=== PATIENT | female | born 1945 | race Caucasian/White ===

== ENCOUNTER 2020-04-19 20:58 | Emergency (ER) | payer OTHER ==
[~2020-04-19] VITALS: Ht 154.9 cm; Wt 54.4 kg
[~2020-04-19 20:58] MED LIST: ASPI81CH PO; CLOP75 PO; LISI5 PO; METO50 PO; SIMV40 PO
[2020-04-19] MEDS ORDERED: Norco 5-325 Ta1 EACH PO (21:47)
== END 2020-04-19 22:25 | disposition home or self-care (01) ==
LOC: ER 20:58
DX: S42.202A Unspecified fracture of upper end of left humerus, initial encounter for closed fracture (principal); Z79.82 Long term (current) use of aspirin; Z79.02 Long term (current) use of antithrombotics/antiplatelets; Z79.899 Other long term (current) drug therapy; F17.210 Nicotine dependence, cigarettes, uncomplicated; W01.0XXA Fall on same level from slipping, tripping and stumbling without subsequent striking against object, initial encounter; Y93.K1 Activity, walking an animal
CPT/HCPCS: 73030; 99283-25; A9270

== ENCOUNTER 2022-02-21 20:15 | Emergency (ER) | payer OTHER ==
[~2022-02-21] VITALS: Ht 152.4 cm; Wt 65.2 kg
[~2022-02-21 20:15] MED LIST changes: +Norco 5-325 Ta1 EACH PO
[2022-02-21 21:35] LABS: BASOPHILS ABSOLUTE AUTO 0.08 K/mm3 (0.00-0.23); BASOPHILS PERCENT AUTO 1 % (0-2); EOSINOPHILS ABSOLUTE AUTO 0.13 K/mm3 (0.00-0.68); EOSINOPHILS PERCENT AUTO 1 % (0-6); Hematocrit 39.6 % (33.0-51.0); IMMATURE GRAN ABSOLUTE AUTO 0.03 K/mm3 (0.00-0.10); IMMATURE GRAN PERCENT AUTO 0 % (0-1); LYMPHOCYTES ABSOLUTE AUTO 1.82 K/mm3 (0.84-5.20); LYMPHOCYTES PERCENT AUTO 17 % (21-46); MONOCYTES PERCENT AUTO 9 % (4-13); Mean Corpuscular HGB 29.1 pg (26.0-34.0); Mean Corpuscular HGB Conc 32.8 g/dL (31.5-36.5); Mean Corpuscular Volume 89 fL (80-100); Mean Platelet Volume 11.5 fL (9.1-12.4); NEUTROPHILS ABSOLUTE AUTO 7.68 K/mm3 (1.96-9.15); NEUTROPHILS PERCENT AUTO 72 % (41-73); Platelet Count 286 K/mm3 (150-400); RDW Coefficient Variation 13.2 % (11.7-14.2); RDW Standard Deviation 43.1 fL (35.1-46.3); Red Blood Cell Count 4.46 M/mm3 (3.80-5.20); White Blood Cell Count 10.74 K/mm3 (4.00-11.30)
[2022-02-21 21:49] LABS: Albumin, Blood 3.6 g/dL (3.4-5.0); Albumin/Globulin Ratio 0.9 (0.8-1.8); Bilirubin, Total 0.4 mg/dL (0.1-1.0); Bun/Creatinine Ratio 15.7 (12.0-20.0); Calcium, Blood 9.2 mg/dL (8.5-10.1); Creatinine, Blood 0.89 mg/dL (0.40-1.00); Globulin, Blood 3.8 g/dL (2.2-4.0); Potassium, Blood 4.3 mmol/L (3.5-5.5); Total Protein, Blood 7.4 g/dL (6.4-8.2)
== END 2022-02-22 00:30 | disposition home or self-care (01) ==
LOC: ER 20:15
PROVIDERS: Student in an Organized Health Care Education/Training Program
DX: R07.9 Chest pain, unspecified (principal); I10 Essential (primary) hypertension; E11.9 Type 2 diabetes mellitus without complications; E78.5 Hyperlipidemia, unspecified; I25.10 Atherosclerotic heart disease of native coronary artery without angina pectoris; Z79.82 Long term (current) use of aspirin; Z79.899 Other long term (current) drug therapy
CPT/HCPCS: 36415; 71046; 80053; 84484; 85025; 93005; 93010; 99285-25

== ENCOUNTER 2023-02-19 08:03 | Day surgery (SDC) | payer OTHER ==
[~2023-02-19] VITALS: Ht 154.9 cm; Wt 62.4 kg
[2023-02-19] MEDS ORDERED: XARELTO20 MG PO (09:00)
[2023-02-19] MEDS ORDERED: ATEN50 PO (09:01)
[2023-02-19 09:19] VITALS: BP 158/74
[2023-02-19] MEDS ORDERED: Prinivil10 MG PO ×2 (10:05→11:17)
[2023-02-19] MEDS ORDERED: ASPI81CH PO (10:05)
[2023-02-19 10:16] VITALS: BP 214/59
--- NOTE | 2023-02-19 10:21 | NUR ---
PROCEDURE CANCELLED DURING ADMISSION THE PT ADMITS TO NOT TAKING HER LISINOPRIL SINCE EARLY JANUARY. PT'S BP ON ADMISSION IS 214/59. DR. GONZÁLES NOTIFIED AND PROCEDURE IS CANCELED. DR. GONZÁLES OKAY W PT BEING DC'D HOME SHE IS ASYMPTOMATIC. THIS RN EDUCATING THE PT ON THE DANGERS OF UNCONTROLLED HTN AND THAT SHE CAN GO TO THE EMERGENCY RM TO BE EVALUATED FOR HER HTN. PT AGREES TO FOLLOW UP W HER PCP.
== END 2023-02-19 22:41 | disposition home or self-care (01) ==
LOC: ORSCMMR 08:03 → ORD 09:30 → ORSCMMR 22:41
DX: Z12.11 Encounter for screening for malignant neoplasm of colon (principal); I10 Essential (primary) hypertension; Z53.9 Procedure and treatment not carried out, unspecified reason; I25.2 Old myocardial infarction; Z79.899 Other long term (current) drug therapy; Z87.891 Personal history of nicotine dependence
CPT/HCPCS: J7120

== ENCOUNTER 2023-02-19 11:05 | Emergency (ER) | payer OTHER ==
[~2023-02-19] VITALS: Ht 157.5 cm; Wt 62.6 kg
[~2023-02-19 11:05] MED LIST changes: +ATEN50 PO; +Prinivil10 MG PO; +XARELTO20 MG PO
[2023-02-19 11:14] VITALS: BP 201/64
[2023-02-19] MEDS ORDERED: Prinivil10 MG PO (11:17)
== END 2023-02-19 13:42 | disposition home or self-care (01) ==
LOC: ER 11:05
DX: I10 Essential (primary) hypertension (principal); E11.9 Type 2 diabetes mellitus without complications; E78.5 Hyperlipidemia, unspecified; M10.9 Gout, unspecified; Z79.899 Other long term (current) drug therapy
CPT/HCPCS: 93005; 93010; 99283-25

== ENCOUNTER 2024-04-07 10:58 | Day surgery (SDC) | payer MEDICARE ==
[~2024-04-07] VITALS: Ht 154.9 cm; Wt 58.2 kg
[~2024-04-07 10:58] MED LIST changes: +Povidone-Iodine 450 DROP/30 ML Solution ONE; +Tetracaine HCl/Pf 0.5% Opth Soln 4 ml ONE
[2024-04-07] MEDS ORDERED: Aspir 8181 MG PO (11:46)
[2024-04-07] MEDS ORDERED: Midazolam HCl 1MG / ML 2ML Vial ONE (12:06)
[2024-04-07] MEDS ORDERED: FentaNYL Citrate 50 MCG/ML 2 ML Injection ONE (12:06)
[2024-04-07] MEDS ORDERED: Balanced Salt Epinephrine Irrigation Solution 500 mL IR ONE (12:21)
[2024-04-07] MEDS ORDERED: Lidocaine HCl/Pf 1% 5 ML VIAL XX ONE (12:21)
[2024-04-07] MEDS ORDERED: Moxifloxacin HCL 0.5 MG/0.1 ML 0.4MLSYR XX ONE (12:21)
[2024-04-07 12:41] VITALS: BP 176/55
== END 2024-04-07 12:57 | disposition home or self-care (01) ==
LOC: ORSCSDS 10:58
PROVIDERS: Student in an Organized Health Care Education/Training Program
PROC: 08RJ3JZ Replacement of Right Lens with Synthetic Substitute, Percutaneous Approach (ICD-10-PCS; principal; 2024-04-07 13:00)
DX: H25.813 Combined forms of age-related cataract, bilateral (principal); H35.89 Other specified retinal disorders; I25.10 Atherosclerotic heart disease of native coronary artery without angina pectoris; I25.2 Old myocardial infarction; I10 Essential (primary) hypertension; Z79.82 Long term (current) use of aspirin; Z79.899 Other long term (current) drug therapy
CPT/HCPCS: J2003; J2250; J3010; V2632

== ENCOUNTER 2024-04-13 11:10 | Day surgery (SDC) | payer MEDICARE ==
[~2024-04-13] VITALS: Ht 154.9 cm; Wt 58.5 kg
[~2024-04-13 11:10] MED LIST changes: +Aspir 8181 MG PO; +Balanced Salt Epinephrine Irrigation Solution 500 mL IR SCH; +Lidocaine HCl/Pf 1% 5 ML VIAL XX SCH; +Moxifloxacin HCL 0.5 MG/0.1 ML 0.4MLSYR LEFTEYE SCH; +NS 500 ML IV ONE; +PHENYLEPHRINE\\TROPICAMIDE\\TETRACAINE OPHTHALMIC DILATING SOLN LEFTEYE PRN; +Povidone-Iodine 450 DROP/30 ML Solution LEFTEYE SCH
[2024-04-13] MEDS ORDERED: NS 500 ML IV ONE (11:40)
[2024-04-13] MEDS ORDERED: FentaNYL Citrate 50 MCG/ML 2 ML Injection ONE (11:48)
[2024-04-13] MEDS ORDERED: Midazolam HCl 1MG / ML 2ML Vial ONE (11:48)
--- NOTE | 2024-04-13 11:50 | NUR ---
04/13/24 1150 Mirela Piper TETRAJULIA: 1131 DEVANTE: 1133
[2024-04-13 12:33] VITALS: BP 163/51
== END 2024-04-13 12:44 | disposition home or self-care (01) ==
LOC: ORSCSDS 11:10
PROVIDERS: Student in an Organized Health Care Education/Training Program
PROC: 08RK3JZ Replacement of Left Lens with Synthetic Substitute, Percutaneous Approach (ICD-10-PCS; principal; 2024-04-13 13:30)
DX: H25.812 Combined forms of age-related cataract, left eye (principal); Z96.1 Presence of intraocular lens; I10 Essential (primary) hypertension; I25.2 Old myocardial infarction; I25.10 Atherosclerotic heart disease of native coronary artery without angina pectoris; Z79.899 Other long term (current) drug therapy; Z79.82 Long term (current) use of aspirin
CPT/HCPCS: J2250; J3010; J7040; V2632